=== PATIENT | male | born 1975 | race Caucasian/White ===

== ENCOUNTER → 2018-01-25 | Outpatient (CLI) | payer OTHER ==
[~2018-01-25] MED LIST: ALLEGRA; CIPR-214 PO; EZET10TA41 PO; FLONASE; HYDR-385 PO; METR-1 PO; VYTORIN
== END ==
LOC: LAB 06:49
PROVIDERS: ATTEND Family Medicine
DX: E78.2 Mixed hyperlipidemia (principal)
CPT/HCPCS: 36415; 82040; 82247; 82310; 82374; 82435; 82465; 82565; 82947; 83718; 84075; 84132; 84155; 84295; 84450; 84460; 84478; 84520